=== PATIENT | female | born 2000 | race Caucasian/White ===

== ENCOUNTER 2024-08-04 06:53 | Outpatient (CLI) | payer BC, SELFPAY ==
--- NOTE | 2024-08-04 07:15 | CRLHL7_ITS ---
For Patients: As a result of the Cures Act, medical imaging exams and procedure reports are released immediately into your electronic medical record. You may view this report before your referring provider. If you have questions, please contact your health care provider. LMP: 06/07/2024. DANTE by LMP: 03/14/2025. GA: 8w, 2d. INDICATION: Dating and viability. TECHNIQUE: First trimester transvaginal obstetric ultrasound images were obtained. CRL: 1.5 cm, 7w 6d. DANTE 03/17/2025. FHR: 169 bpm. GESTATIONAL SAC: 2.8 cm. YOLK SAC: 2.6 mm. RIGHT OVARY: 4.2 x 2.4 x 2.7, CL. LEFT OVARY: 2.3 x 1.9 x 2.1. IMPRESSION: 1. Single living intrauterine measuring 7 weeks 6 days and sonographic due date 03/17/2025. 2. Corpus luteal cyst right ovary measures 2.6 x 1.8 x 2.3 cm. Mesfin Monte M.D. Diagnostic Radiologist [email or web address] bM/Dictated by: Mesfin Monte MD @ 08/04/2024 8:43:00 PM (Electronically Signed)
== END 2024-08-04 06:54 | disposition home or self-care (01) ==
PROVIDERS: Visit Provider Advanced Practice Midwife
DX: Z34.91 Encounter for supervision of normal pregnancy, unspecified, first trimester (principal); O34.81 Maternal care for other abnormalities of pelvic organs, first trimester; N83.11 Corpus luteum cyst of right ovary; Z3A.08 8 weeks gestation of pregnancy
CPT/HCPCS: 76817; 83021; 86592; 86703; 86704; 86706; 86762; 86787; 86803; 86850; 86900; 86901; 87086; 87340

== ENCOUNTER 2024-08-15 09:34 | Outpatient (CLI) | payer BC, SELFPAY | END 2024-08-15 09:35 | disposition home or self-care (01) | PROVIDERS: Visit Provider Advanced Practice Midwife | DX: Z34.91 Encounter for supervision of normal pregnancy, unspecified, first trimester (principal) | CPT/HCPCS: 87491; 87591 ==

== ENCOUNTER 2024-10-22 08:47 | Outpatient (CLI) | payer BC, SELFPAY | END 2024-10-22 08:48 | disposition home or self-care (01) | LOC: US 08:48 | PROVIDERS: Visit Provider Advanced Practice Midwife | DX: O99.212 Obesity complicating pregnancy, second trimester (principal); Z68.42 Body mass index [BMI] 45.0-49.9, adult; Z3A.19 19 weeks gestation of pregnancy | CPT/HCPCS: 76811 ==

== ENCOUNTER 2024-11-12 06:55 | Outpatient (CLI) | payer BC, SELFPAY | END 2024-11-12 06:56 | disposition home or self-care (01) | LOC: US 06:56 | PROVIDERS: Visit Provider Obstetrics & Gynecology | DX: O99.212 Obesity complicating pregnancy, second trimester (principal); Z68.42 Body mass index [BMI] 45.0-49.9, adult; Z3A.22 22 weeks gestation of pregnancy | CPT/HCPCS: 76816 ==

== ENCOUNTER 2024-12-03 10:32 | Outpatient (CLI) | payer BC, SELFPAY | END 2024-12-03 10:33 | disposition home or self-care (01) | LOC: US 10:33 | PROVIDERS: Visit Provider Obstetrics & Gynecology | DX: Z36.2 Encounter for other antenatal screening follow-up (principal); Z3A.25 25 weeks gestation of pregnancy | CPT/HCPCS: 76816 ==

== ENCOUNTER 2024-12-25 09:03 | Outpatient (CLI) | payer BC, SELFPAY ==
--- NOTE | 2024-12-25 09:15 | CRLHL7_ITS ---
For Patients: As a result of the Century Cures Act, medical imaging exams and procedure reports are released immediately into your electronic medical record. You may view this report before your referring provider. If you have questions, please contact your health care provider. OBSTETRICAL ULTRASOUND ??? FOLLOW-UP INDICATION: Obesity complicating . CLINICAL HISTORY: DANTE by LMP: 03/14/2025 Gestational Age: 28 weeks 5 days COMPARISON: 10/22/2024, 11/12/2024, 12/03/2024. TECHNIQUE: Real-time ramirez-scale transabdominal imaging of the fetus was performed. FINDINGS: Fetus: Single Cervix: Not visualized positioning: Vertex Amniotic Fluid: BELEN: 26.8 cm 8.0 cm SDP Placenta technique: Transabdominal Placenta position: Posterior heart rate: 137 bpm BIOMETRY: BPD: 7.8 cm, 31 weeks 2 days, 96.2% HC: 27.8 cm, 30 weeks 4 days, 75.4% AC: 27.3 cm, 31 weeks 2 days, >97% FL: 5.4 cm, 28 weeks 5 days, 34.7% FL/AC Ratio: 19.9% HC/AC ratio: 1.0 EFW: 1576 grams; 3 lbs. 8 oz. age by this ultrasound: 30 weeks 3 days DANTE by this ultrasound: 03/02/2025 Percentile by DANTE: 92.8% IMPRESSION: 1. Sonographic gestational age is 30 weeks 3 days with sonographic due date of 03/02/2025. Sonographic age is 12 days ahead of the clinical age. 2. Estimated weight is 93rd percentile. Abdominal circumference is greater than 97th percentile. 3. Amniotic fluid single deepest pocket is 8.0 cm. BELEN is 26.8 cm. MESFIN SALAZAR M.D. Diagnostic Radiologist [email or web address] Transcribed: 11:[address]/Dictated by: Mesfin Salazar MD @ 12/25/2024 10:08:00 AM (Electronically Signed)
== END 2024-12-25 09:04 | disposition home or self-care (01) ==
LOC: US 09:04
PROVIDERS: Visit Provider Obstetrics & Gynecology
DX: O99.213 Obesity complicating pregnancy, third trimester (principal); Z68.42 Body mass index [BMI] 45.0-49.9, adult; Z3A.28 28 weeks gestation of pregnancy
CPT/HCPCS: 76816; 86592